=== PATIENT | male | born 1945 | race Caucasian/White ===

== ENCOUNTER 2018-04-07 08:41 | Day surgery (SDC) | payer MEDICARE, BC ==
[2018-04-07] VITALS (14 sets, daily range): BP systolic 91–154; BP diastolic 37–68; PULSE 62–72; TEMP 98.6
[~2018-04-07] VITALS: Ht 185.5 cm; Wt 109.0 kg
[~2018-04-07 08:41] MED LIST: ASPIRIN 32325 MG/TAB PO; ASPIRIN 81M81 MG/TA2 PO; ATENOLOL50 MG PO; BENAZEPRIL20 MG PO; EFFIENT10 MG PO; HYGROTON 2525 MG/TAB PO; LIPITOR 40MG TA40 MG PO; PANTOPRAZOLE40 MG PO; PLAVIX 75MG TAB75 MG PO; PROTONIX 40MG T40 MG PO; ROXICODONE 55 MG/TAB PO; TENORMIN 5050 MG/TAB PO; TYLENOL ARTHRITIS PO; VYTORIN 10 MG-81 TAB PO
[2018-04-07] MEDS ORDERED: RANEXA 500MG T500 MG PO (09:22)
[2018-04-07] MEDS ORDERED: LOTENSIN 1010 MG/TAB PO (09:22)
[2018-04-07 09:24] LABS: HEMATOCRIT 38.5 % (42.0-52.0); HEMOGLOBIN 13.3 g/dl (13.5-18.0); MEAN CELL VOLUME 91 fl (80.0-100.0); MEAN CORPUSCULAR HEMOGLOBIN 32 pg (27.0-31.0); MEAN CORPUSCULAR HGB CONC 35 g/dl (33.0-37.0); MEAN PLATELET VOLUME 9.6 fl (7.4-10.4); PLATELET COUNT 223 K/mm3 (130-400); RED BLOOD COUNT 4.22 M/mm3 (4.20-5.60); REDCELL DISTRIBUTION WIDTH-CV 12.7 % (11.5-14.5)
[2018-04-07] MEDS ORDERED: DEMADEX 20MG20 M1 PO ×2 (09:24→09:25)
[2018-04-07] MEDS ORDERED: IMDUR 30MG30 MG/TAB PO (09:26)
[2018-04-07 09:28] LABS: PROTHROMBIN TIME 11.6 SECONDS (9.7-12.8)
[2018-04-07 09:35] LABS: CREATININE, serum 1.32 mg/dL (0.66-1.25); POTASSIUM 4.1 mmol/L (3.4-5.0)
[2018-04-07] MEDS ORDERED: ASPI325T6 PO (14:37)
== END 2018-04-07 18:40 | disposition home or self-care (01) ==
LOC: COL.CAR 08:41
PROVIDERS: Internal Medicine Cardiovascular Disease
DX: I25.5 Ischemic cardiomyopathy (principal); I25.810 Atherosclerosis of coronary artery bypass graft(s) without angina pectoris; Z95.1 Presence of aortocoronary bypass graft; G47.33 Obstructive sleep apnea (adult) (pediatric); K21.9 Gastro-esophageal reflux disease without esophagitis; Z95.828 Presence of other vascular implants and grafts
CPT/HCPCS: J2250; J3010; Q9967